=== PATIENT | female | born 1945 | race Caucasian/White ===

== ENCOUNTER 2017-04-12 22:23 | Inpatient (IN) | payer MEDICARE ==
[~2017-04-12] VITALS: Ht 154.9 cm; Wt 88.1 kg
--- NOTE | ~2017-04-12 | PR ---
[place], [place] PROGRESS NOTE NAME: ALEKSANDRA FRANCO UNIT #: [id number] ROOM: 312 DOCTOR: MARIO HARDING BIRTHDATE: [birth year] DOS: 04/22/2017 CHIEF COMPLAINT: "Good morning." SUMMARY OF VISIT: The patient was assessed in her room where she engaged readily in conversation. She is a little hard of hearing. I need to speak in to her right ear and make sure that she could read my lips at all times and we had a pleasant conversation. 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 There are no hallucinations going on last night about or the night before she walked out stating that she needs to put quezada in graves or anything like that. So, I am going to kind of review her meds. The patient did state that she is kind of sensitive to the medications and usually half the normal dosage is effective with her. MENTAL STATUS: She appears to be alert and oriented to person, place, approximate time. Mood is euthymic. Affect is appropriate. There are no overt signs of auditory or visual hallucinations, delusions or paranoia at this point in time. PLAN: I increased her Vraylar yesterday and she takes at the morning, so I am going to keep that where it is. It appears that it may be helping with the psychosis, but I am going to have her Remeron from 15 mg at bedtime to 7.5 mg at bedtime and see if it still can be effective for sleep and depression, but a little less sedating first thing in the morning. It is a concern to her and since we are starting to see some improvement, I am going to try to pull back on that and see if we get a little bit of a better result. JANINA HARDING CNP CM:PNTRANS [id number] MARIO HARDING 04/23/17 0704 interface
--- NOTE | ~2017-04-12 | CON ---
[place], [place] REPORT OF CONSULTATION NAME: ALEKSANDRA FRANCO UNIT #: [id number] ROOM: 312 DOCTOR: MALIKA LOBO ED.D (LUZ) BIRTHDATE: [birth year] DOS: 04/24/2017 HISTORY OF PRESENT ILLNESS: The patient is a 71-year-old female referred by Dr. Lacey for competency evaluation. At the present time, this patient is on the senior behavioral health unit at [facility]. She states she has been twice and has 3 adult children. 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 Presently, she is residing in [place], [place] with one of her family members. She does not have a family physician at the present time. PAST MEDICAL HISTORY: Pertinent for aortic dissection, COPD, GERD, hypertension, depression and history of alcohol dependence. MEDICATIONS: Include Vraylar, Namenda, Remeron, Exelon, omeprazole, Zetia, Xarelto, Celexa, metoprolol, gabapentin, albuterol, and Zofran. This patient states she does have an alcohol problem, but denies alcohol abuse at the present time. She was awake, alert and oriented in all three spheres. She indicated it is April 2017 and Willam Portillo is the president of [employer]. She readily discussed current events and had no difficulty whatsoever with her memory. Her short and long-term memory appeared to be intact. According to her history and her family, this patient is quite manipulative, but she is clearly competent to make informed healthcare decisions. She is willing to go to assisted living because she states she cannot take care of herself independently. DIAGNOSES: 1. Major depressive disorder, recurrent. 2. Personality disorder, not otherwise specified. RECOMMENDATIONS: 1. In my opinion, this patient is competent to make informed healthcare decisions. 2. The patient should be transferred to assisted living when she is medically stable. Thank you very much for this consult. MALIKA LOBO ED.D CM:CONSTR:REPORT OF CONSULTATION 1052 04/24/17 7890 interface ROSALIE LACEY MD
--- NOTE | ~2017-04-12 | PR ---
[place], [place] PROGRESS NOTE NAME: ALEKSANDRA FRANCO UNIT #: [id number] ROOM: 312 DOCTOR: MARIO HARDING BIRTHDATE: [birth year] DOS: 04/20/2017 CHIEF COMPLAINT: "Good morning, I am ready to go home." SUMMARY OF VISIT: The patient was interviewed in the hunter where she was looking out the window. She engaged readily in conversation. Her really only voiced complaint is that she does occasionally get short of breath. It does cause her to get anxious, scared. Other than that, she was pleasant. MENTAL STATUS: Alert and oriented to person, place, approximate time. Mood euthymic. Affect appropriate. No auditory or visual hallucinations, delusions, paranoia, christiano or hypomania. PLAN: Looks like she stabilized on her medication. She should be discharged anytime now. I am not sure what the hold up is, so I will plan on discharging her as soon as I get the go ahead. JANINA HARDING CNP CM:PNTRANS [id number] MARIO HARDING 04/20/17 1535 interface
--- NOTE | ~2017-04-12 | DS ---
[place], [place] DISCHARGE SUMMARY NAME: ALEKSANDRA FRANCO UNIT #: [id number] ROOM: 312 DOCTOR: VANDANA SKY BIRTHDATE: [birth year] DOS: 04/27/2017 She was admitted to the Behavioral Health Unit on 04/13/2017 CHIEF COMPLAINT: "I had a much better night last night." HISTORY OF PRESENT ILLNESS: She is a 71-year-old white female who came to [facility] from [place]. She presented at [place] acutely depressed and psychotic. She had been hearing music in her head that was not there, also seeing and hearing people that had already . She reported that she was hearing her , played a piano and sang. Her behavior became very erratic and family was not able to attend to her needs. She was admitted to the Behavioral Health Unit to rule out any organic factors and to stabilize her on medication. There is some question as to whether she will be able to be placed back with the family at discharge and so we will determine appropriate placement. PAST MEDICAL HISTORY: Aortic dissection, COPD, GERD, hyperlipidemia, hypertension, restless leg syndrome and sleep apnea. SUMMARY OF THE HOSPITAL COURSE: Her Vraylar was increased from 1.5 to 3 mg at bedtime initially and because she had been complaining that she had not had significant sleep recently. Exelon patch was started and altered with Namenda in order to improve and maintain her ADLs, behavior and cognition. Remeron was also added to treat her depression. MENTAL STATUS AT DISCHARGE: She is alert and oriented. She is very much ready to be discharged to long-term care facility for a 30-day rehab stay and then continue will be returned from there. She is pleasant and cooperative. She denies any suicidal or homicidal ideation. There are no hallucinations, delusions or paranoia. DISPOSITION: She will be discharged to a long-term care facility for at least a 30-day rehab stay. Her prescriptions will be sent with her and she is discharged in psychiatrically stable condition. [place], [place] DISCHARGE SUMMARY NAME: ALEKSANDRA FRANCO UNIT #: [id number] ROOM: 312 DOCTOR: KIKOBELLEVANDANA BIRTHDATE: [birth year] Vandana Sky NP CM:DISCHMARLA 50 [phone] VANDANA SKY 04/27/172258 interface
--- NOTE | ~2017-04-12 | PR ---
[place], [place] PROGRESS NOTE NAME: ALEKSANDRA FRANCO UNIT #: [id number] ROOM: 312 DOCTOR: MARIO HARDING BIRTHDATE: [birth year] DOS: 04/21/2017 CHIEF COMPLAINT: "Good morning." SUMMARY OF VISIT: The patient was assessed outside her room and then later down the hallway. She engaged readily in conversation, was pleasant, was asking if somebody would buy her a lot of ticket. I do not think she was psychotic at that time, she really just like ____ watery; however, nursing did report that last night in the middle of the night, she came out of her room with her walker, stating that somebody need to put quezada on the grave. She was not sleepwalking. They felt that she was actively having some type of delusion or hallucination. MENTAL STATUS: Right now, she is alert and oriented to person, place, approximate time. Mood euthymic. Affect appropriate, possible hallucinations, delusions going on. PLAN: I am going to go ahead and increase her Vraylar. See if I can help break the psychosis and see how she does over the next 24 hours and I will continue adjusting meds as possible. JANINA HARDING CNP CM:PNJL 8 [phone] MARIO HARDING 04/21/171957 interface
--- NOTE | ~2017-04-12 | PR ---
[place], [place] PROGRESS NOTE NAME: ALEKSANDRA FRANCO UNIT #: [id number] ROOM: 312 DOCTOR: ROSALIE LACEY MD BIRTHDATE: [birth year] DOS: 04/15/2017 INTERVAL NOTE. CHIEF COMPLAINT: "I think I slept better, but I'm a little tired this morning." SUMMARY OF THE VISIT: The patient was interviewed as she rested in bed. She sat at the edge of her bed and engaged readily in conversation. She did report that she thinks she did sleep better last night, but woke up feeling a little tired. This seems to be lessening as the day has progressed. She is convinced at this point that she does need to be in some type of placement with more supervision, whether this be a long-term care facility or assisted living. She does not feel that she can adequately meet her needs on her own without having some supervision and assistance. There is no christiano or psychosis noted at this point. She seems to be tolerating the current medication regimen well with just some mild morning somnolence noted. MENTAL STATUS: She is alert and oriented with time gaps. Mood does seem to be trending towards euthymia. Affect is more appropriate. There is no christiano or hypomania. There are no psychotic symptoms voiced at this time. Short term memory has gaps and she does process slowly. PLAN: I will increase Exelon patch from 4.6 to 9.5 mg a day, maintain Namenda at 5 mg twice daily. Continue to engage in individual and perez milieu activity, exploring possible placement options when more stable. ROSALIE LACEY MD CM:PNTRANS [id number] ROSALIE LACEY MD 04/15/17 1358 interface
--- NOTE | ~2017-04-12 | PR ---
[place], [place] PROGRESS NOTE NAME: ALEKSANDRA FRANCO UNIT #: [id number] ROOM: 311 DOCTOR: ROSALIE LACEY MD BIRTHDATE: [birth year] DOS: 04/14/2017 CHIEF COMPLAINT: "I didn't sleep at all; I was up and down all night." SUMMARY OF THE VISIT: The patient was interviewed in her room. She reported that she still feels very depressed and anxious and did not sleep well at all with difficulty falling asleep, sleep continuity disturbance and weigh box tender awakening. Some of this is because her roommate kept her up, other remains due to her ongoing depression. MENTAL STATUS: She is alert and oriented to person, place, but not time. Mood remains depressed with anxious overtones. There is no hypomania or christiano, although she is rather fragmented and disjointed and somewhat circumstantial in her thinking. There is mild paranoia present. Short term memory is poor. PLAN: I will start her on Exelon patch to augment the Namenda in improving and maintaining her ADLs, behavior and cognition. I will start Exelon patch at 4.6 mg daily. I will likewise simultaneously increase Namenda to 5 mg twice daily to augment the cholinesterase inhibitor. I will increase the Vraylar from 1.5 to 3 mg at bedtime and add Remeron given the depressive symptomatology with significant neurovegetative symptoms. I will check a Neurontin level in the a.m. to ensure that it is therapeutic. Continue to engage her in individual and perez milieu activity with the plan to return home when stable. ROASLIE LACEY MD CM:PNTRANS [id number] ROSALIE LACEY MD 04/14/17 1235 interface
--- NOTE | ~2017-04-12 | WRIGHTHP ---
[place], [place] PATIENT HISTORY AND PHYSICAL EXAM NAME: ALEKSANDRA FRANCO UNIT #: [id number] ROOM: 311 DOCTOR: ROSALIE LACEY MD BIRTHDATE: [birth year] DOS: 04/13/2017 CHIEF COMPLAINT: "I don't know why I am here. I do not know I need to find a place to stay because I cannot stay with my family." HISTORY OF PRESENT ILLNESS: This is a 71-year-old white female who was sent here from [facility]. The patient had presented there in an acutely depressed and psychotic state. The patient apparently has been hearing music in her head that is not there; also seeing people and hearing people that have subsequently . She has been hearing her play the piano and sing. Her behavior has become very erratic and family has not been able to attend to her needs. She is admitted now to rule out organic factors, to stabilize on medication, and to determine the appropriate placement post-discharge. PAST MEDICAL HISTORY: Significant for an aortic dissection, COPD, GERD, hyperlipidemia, hypertension, restless legs syndrome, and sleep apnea. ALLERGIES: She HAS MULTIPLE ALLERGIES INCLUDING TO STATINS, IBUPROFEN, THEN TO CHOCOLATE, HOUSE DUST, AND GRASS. MENTAL STATUS EXAMINATION: This morning, the patient is alert and oriented. Mood is somewhat depressed with some anxious overtones. She tended to jump from topic to topic, but was rather conversant and did try to engage in conversation. There was no significant hypomania or christiano. There were no overt auditory or visual hallucinations voiced this morning. Likewise, I saw no paranoia. She does process slowly at times and short-term memory has mild gaps. DIAGNOSIS: Brief psychotic disorder, rule out major depression with psychotic features. PLAN: I will go ahead and increase the Vraylar from 1.5 to 3 mg at bedtime. Already last night, she reports that it did help her sleep and she did have her first good sleep in months. I will continue to evaluate for the presence or absence of depression, engage her in individual and perez milieu activity, and explore possible placement options. [place], [place] PATIENT HISTORY AND PHYSICAL EXAM NAME: ALEKSANDRA FRANCO UNIT #: [id number] ROOM: 311 DOCTOR: RSOALIE LACEY MD BIRTHDATE: [birth year] ROSALIE LACEY MD CM:HISPHYS:PATIENT HISTORY AND PHYSICAL EXAMINATION 6 3 ROSALIE LACEY MD 04/13/1725 interface
--- NOTE | ~2017-04-12 | DS ---
[place], [place] DISCHARGE SUMMARY NAME: ALEKSANDRA FRANCO [facility] #: [id number] UNIT #: [id number] ROOM: 312 DOCTOR: VANDANA SKY BIRTHDATE: [birth year] DOS: 04/24/2017 CHIEF COMPLAINT: "Good morning." HISTORY OF PRESENT ILLNESS: She is a 71-year-old white female who was brought to the behavioral health unit from [facility]. She presented at [facility] acutely depressed and psychotic. She was hearing music in her head, also having visual hallucinations, seeing and hearing people that had already passed. Her behavior became erratic and her family was not able to take care of her, so she was admitted to the behavioral health unit to rule out any organic or metabolic issues that may have been causing her behavior, also to stabilize her medication and to find appropriate placement of her post-discharge. PAST MEDICAL HISTORY: Aortic dissection, COPD, GERD, hyperlipidemia, hypertension, RLS and sleep apnea. ALLERGIES: She had multiple drug allergies including STATINS, IBUPROFEN, CHOCOLATE, HOUSE DUST and GRASS. SUMMARY OF HOSPITAL STAY: Initially when she came in, her Vraylar was increased from 1.5 mg to 3 mg at bedtime, immediately she had an improvement in her sleep with that change in her medication. While on the unit, she did have a short period where she was restless and agitated. She was started on Exelon patch and Namenda in order to treat her dementia, both were titrated up while she was on the unit and she did have great improvement. She was also started on Remeron for depression and also to help her with her sleep and appetite. MENTAL STATUS AT DISCHARGE: She is alert, oriented to person and place, somewhat to time. She is pleasant and interactive with other residents. She has had no audio or visual hallucinations, delusions or paranoia. DISPOSITION: Placement has been a challenge because the daughter is not wanting her to return home with her. [facility] is working on finding placement for at least a 30-day rehab stay in order to give her time to become even more stable on her medication and to determine what her long-term placement is going to be. Her prescriptions were printed and put on her chart. DIAGNOSIS: Major depressive disorder with psychotic features. She is being discharged in psychiatrically stable condition. [place], [place] DISCHARGE SUMMARY NAME: ALEKSANDRA FRANCO UNIT #: [id number] ROOM: [facility] DOCTOR: VANDANA SKY BIRTHDATE: [birth year] Vandana Sky NP CM:DISCHARG [id number] VANDANA SKY 04/25/17 0659 interface
[2017-04-12] MEDS ORDERED: ARICEPT10 M1 PO (22:40)
[2017-04-12] MEDS ORDERED: MIRAPEX0.25 M1 PO (22:54)
[2017-04-12] MEDS ORDERED: EFFEXOR XR150 MG PO (22:57)
[2017-04-12] MEDS ORDERED: Ventolin 02.5 MG/3 M INH (22:59)
[2017-04-12] MEDS ORDERED: VENTOLIN 02.5 MG/3 M INH (22:59)
[2017-04-12] MEDS ORDERED: XARELTO20 M1 PO (23:00)
[2017-04-12] MEDS ORDERED: PULMICORT RES0.25 M1 INH (23:03)
[2017-04-12] MEDS ORDERED: NEURONTIN400 MG PO (23:05)
[2017-04-12] MEDS ORDERED: DUONEB 3 MG/3 ML3 M1 INH (23:05)
[2017-04-12] MEDS ORDERED: VITAMIN D50000 UNIT PO (23:06)
[2017-04-12] MEDS ORDERED: LASIX20 MG PO (23:07)
[2017-04-12] MEDS ORDERED: Wellbutrin Sr100 MG PO (23:08)
[2017-04-12] MEDS ORDERED: KETOCONAZOLE S120 M1 T (23:09)
[2017-04-12] MEDS ORDERED: XANAX0.25 MG PO (23:09)
[2017-04-12] MEDS ORDERED: 'CLONIDINE0.1 MG PO (23:10)
[2017-04-12] MEDS ORDERED: PROTONIX40 MG PO (23:11)
[2017-04-12] MEDS ORDERED: METOPROLOL TART50 M1 PO (23:11)
[2017-04-12] MEDS ORDERED: ZETIA10 MG PO (23:12)
[2017-04-12] MEDS ORDERED: NATURE'S BLEND F1 MG PO (23:12)
[2017-04-12] MEDS ORDERED: ADVAIR 250/501 EA INH (23:13)
[2017-04-12] MEDS ORDERED: CETIRIZINE5 MG PO (23:14)
[2017-04-12] MEDS ORDERED: IRON325 M1 PO (23:15)
[2017-04-12] MEDS ORDERED: SEROQUEL25 MG PO ×2 (23:16→23:18)
[2017-04-13 01:26] VITALS: BP 117/73
[2017-04-13 02:23] VITALS: BP 117/73
[2017-04-13 07:46] LABS: ALBUMIN 3.3 gm/dl (3.1-4.5); ALKALINE PHOSPHATASE 106 U/L (45-117); BUN 13 mg/dl (7-24); CHLORIDE 104 mmol/L (98-107); CHOLESTEROL 197 mg/dL (<200); CREATININE 1.06 mg/dL (0.55-1.02); HDL CHOLESTEROL 47 mg/dl (40-60); LDL CHOLESTEROL 123 mg/dL (9-159); POTASSIUM 3.4 mmol/L (3.5-5.1); SGOT/AST 22 IU/L (3-35); SGPT/ALT 28 U/L (12-78); SODIUM 141 mmol/L (136-145); TOTAL PROTEIN 6.5 gm/dL (6.4-8.2); TRIGLYCERIDES 136 mg/dl (<150); VLDL CHOLESTEROL 27 mg/dL (6-40)
[2017-04-13 07:58] VITALS: BP 129/78
[2017-04-13 10:10] LABS: BASO % 0.4 % (0.0-1.0); EOS # 0.5 10*3/uL (0.0-0.4); EOS % 8.1 % (1.0-4.0); HEMATOCRIT 36.5 % (37.0-47.0); HEMOGLOBIN 11.4 g/dl (12.0-16.0); LYMPH # 1.5 10*3/uL (1.3-4.4); LYMPH % 27.2 % (27.0-41.0); MEAN CELL VOLUME 87.1 fl (81.0-99.0); MEAN CORPUSCULAR HGB 27.2 pg (27.0-31.0); MEAN CORPUSCULAR HGB CONC 31.2 g/dl (33.0-37.0); MEAN PLATELET VOLUME 10.6 fl (9.6-12.3); MONO # 0.5 10*3/uL (0.1-1.0); MONO % 8.5 % (3.0-9.0); NEUT # 3.1 10*3/uL (2.3-7.9); NEUT % 54.9 % (47.0-73.0); PLATELET COUNT AUTOMATED 218 10*3/uL (130-400); RED BLOOD COUNT 4.19 10*6/uL (4.10-5.10); WHITE BLOOD COUNT 5.6 10*3/uL (4.8-10.8)
[2017-04-13 17:33] LABS: BILIRUBIN NEGATIVE (NEGATIVE); BLOOD 1+ (NEGATIVE); CLARITY SL CLOUDY (CLEAR); COLOR YELLOW (YELLOW); GLUCOSE NEGATIVE (NEGATIVE); KETONE NEGATIVE (NEGATIVE); LEUKO ESTERASE 1+ (NEGATIVE); NITRITE NEGATIVE (NEGATIVE); UROBILINOGEN 0.2 E.U./dl (0.2-1.0)
[2017-04-13 17:40] LABS: BACTERIA 3+; WBC 21-30 wbc/hpf (0-5)
[2017-04-13 20:00] VITALS: BP 120/66
[2017-04-14 07:27] LABS: BUN 12 mg/dl (7-24); CHLORIDE 105 mmol/L (98-107); CREATININE 1.04 mg/dL (0.55-1.02); POTASSIUM 4.1 mmol/L (3.5-5.1); SODIUM 144 mmol/L (136-145)
[2017-04-14 08:04] VITALS: BP 122/62
[2017-04-14 09:16] LABS: VITAMIN D, 25-HYDROXY 42.4 ng/mL (30-100)
[2017-04-14 20:21] VITALS: BP 128/69
[2017-04-15 08:17] VITALS: BP 117/73
[2017-04-15 20:00] VITALS: BP 144/65
[2017-04-16 06:57] VITALS: BP 149/66
[2017-04-16 20:13] VITALS: BP 106/39; BP 108/82
[2017-04-17 07:55] VITALS: BP 149/85
[2017-04-17 19:58] VITALS: BP 104/64
[2017-04-18 08:37] VITALS: BP 150/89
[2017-04-18 10:08] LABS: NEURONTIN (GABAPENTIN) 6.8 ug/mL (4.0-16.0)
[2017-04-18 20:35] VITALS: BP 151/83
[2017-04-19 08:01] VITALS: BP 146/79
[2017-04-20 07:32] VITALS: BP 134/72
[2017-04-20 20:34] VITALS: BP 141/85
[2017-04-21 07:42] VITALS: BP 141/79
[2017-04-21 19:47] VITALS: BP 125/79
[2017-04-22 05:45] LABS: BUN 19 mg/dl (7-24); CHLORIDE 110 mmol/L (98-107); CREATININE 1.06 mg/dL (0.55-1.02); POTASSIUM 4.1 mmol/L (3.5-5.1); SODIUM 144 mmol/L (136-145)
[2017-04-22 06:00] LABS: BASO # 0.1 10*3/uL (0.0-0.1); BASO % 0.8 % (0.0-1.0); EOS # 0.2 10*3/uL (0.0-0.4); EOS % 3.7 % (1.0-4.0); HEMATOCRIT 37.5 % (37.0-47.0); HEMOGLOBIN 11.7 g/dl (12.0-16.0); LYMPH # 1.8 10*3/uL (1.3-4.4); LYMPH % 28.1 % (27.0-41.0); MEAN CELL VOLUME 88.7 fl (81.0-99.0); MEAN CORPUSCULAR HGB 27.7 pg (27.0-31.0); MEAN CORPUSCULAR HGB CONC 31.2 g/dl (33.0-37.0); MEAN PLATELET VOLUME 10.8 fl (9.6-12.3); MONO # 0.5 10*3/uL (0.1-1.0); MONO % 7.8 % (3.0-9.0); NEUT # 3.8 10*3/uL (2.3-7.9); NEUT % 58.4 % (47.0-73.0); PLATELET COUNT AUTOMATED 226 10*3/uL (130-400); RED BLOOD COUNT 4.23 10*6/uL (4.10-5.10); RED CELL DISTRI WIDTH 16.9 % (0-14.5); WHITE BLOOD COUNT 6.6 10*3/uL (4.8-10.8)
[2017-04-22 07:39] VITALS: BP 128/77
[2017-04-22 19:38] VITALS: BP 118/683
[2017-04-23 08:25] VITALS: BP 129/74
[2017-04-23 19:53] VITALS: BP 126/67
[2017-04-24] MEDS ORDERED: VRAYLAR4.5 MG PO (08:41)
[2017-04-24] MEDS ORDERED: EXELON13.3 MG/21 T (08:41)
[2017-04-24] MEDS ORDERED: MIRTAZAPINE15 M2 PO (08:41)
[2017-04-24] MEDS ORDERED: MEMANTINE HCL10 MG PO (08:41)
[2017-04-24 09:03] VITALS: BP 132/88
[2017-04-24 19:57] VITALS: BP 137/74
[2017-04-25 07:51] LABS: CHOLESTEROL 226 mg/dL (<200); HDL CHOLESTEROL 52 mg/dl (40-60); LDL CHOLESTEROL 142 mg/dL (9-159); TRIGLYCERIDES 159 mg/dl (<150); VLDL CHOLESTEROL 32 mg/dL (6-40)
[2017-04-25 08:16] VITALS: BP 119/64
[2017-04-25 20:00] VITALS: BP 116/87
[2017-04-26 07:45] VITALS: BP 113/71
[2017-04-26 20:00] VITALS: BP 147/74
[2017-04-27 07:45] VITALS: BP 121/66
== END 2017-04-27 10:50 | DRG 885 ==
LOC: 3N 22:23
PROVIDERS: Internal Medicine; Internal Medicine Hospice and Palliative Medicine; ADMIT Psychiatry & Neurology Psychiatry
DX: F32.3 Major depressive disorder, single episode, severe with psychotic features (principal); J96.11 Chronic respiratory failure with hypoxia; F03.90 Unspecified dementia, unspecified severity, without behavioral disturbance, psychotic disturbance, mood disturbance, and anxiety; F23 Brief psychotic disorder; J44.9 Chronic obstructive pulmonary disease, unspecified; E78.5 Hyperlipidemia, unspecified; I10 Essential (primary) hypertension; K59.00 Constipation, unspecified; G47.30 Sleep apnea, unspecified; G25.81 Restless legs syndrome; K21.9 Gastro-esophageal reflux disease without esophagitis; F60.9 Personality disorder, unspecified; F41.9 Anxiety disorder, unspecified; H91.8X2 Other specified hearing loss, left ear; Z90.710 Acquired absence of both cervix and uterus; Z88.9 Allergy status to unspecified drugs, medicaments and biological substances; Z91.02 Food additives allergy status; Z91.09 Other allergy status, other than to drugs and biological substances